=== PATIENT | female | born 1935 | race Caucasian/White ===

== ENCOUNTER 2016-09-10 15:52 | Emergency (ER) | payer SELFPAY ==
[~2016-09-10] VITALS: Ht 157.5 cm; Wt 65.9 kg
[2016-09-10 16:21] VITALS: BP 177/77
[2016-09-10] MEDS ORDERED: LISI-662 PO (16:31)
[2016-09-10] MEDS ORDERED: HYDR25TA PO (16:31)
== END 2016-09-10 18:50 | disposition left against medical advice (07) ==
LOC: EMS 15:55
DX: M25.552 Pain in left hip (principal); I10 Essential (primary) hypertension; Z87.891 Personal history of nicotine dependence; Z53.21 Procedure and treatment not carried out due to patient leaving prior to being seen by health care provider

== ENCOUNTER 2017-06-17 12:44 | Emergency (ER) | payer SELFPAY ==
[~2017-06-17] VITALS: Ht 149.9 cm; Wt 50.0 kg
[~2017-06-17 12:44] MED LIST: HYDR25TA PO; LISI-662 PO
[2017-06-17] MEDS ORDERED: ASPI81 PO (13:23)
[2017-06-17] MEDS ORDERED: IOVERSOL 350 MG/ML 100 ML VIAL ONE (15:46)
[2017-06-17 16:12] LABS: BASOPHILS # (AUTO) 0.02 K/uL (0.00-0.20); BASOPHILS % (AUTO) 0.1 % (0.0-2.0); EOSINOPHILS # (AUTO) 0.14 K/uL (0.00-0.70); EOSINOPHILS % (AUTO) 1.25 % (1.0-6.0); HEMATOCRIT 45.5 % (36-46); LYMPHOCYTES # (AUTO) 1.6 K/uL (1.0-4.8); MEAN CORPUSCULAR HEMOGLOBIN 30.7 pg (26.0-34.0); MEAN CORPUSCULAR HGB CONC 33.1 G/dL (31.0-37.0); MEAN CORPUSCULAR VOLUME 93 fL (80-100); MONOCYTES # (AUTO) 0.4 K/uL (0.1-1.0); MONOCYTES % (AUTO) 3.8 % (2.0-9.0); NEUTROPHILS # (AUTO) 9.3 K/uL (1.8-7.7); NEUTROPHILS % (AUTO) 80.9 % (40.0-70.0); PLATELET COUNT (AUTO) 304 K/uL (150-450); RED CELL DISTRIBUTION WIDTH 13.7 % (11.5-14.5)
[2017-06-17 16:29] LABS: ANION GAP 9 mmol/L (8-16); CALCIUM, TOTAL 9.4 mg/dL (8.8-10.5); CARBON DIOXIDE 27 mmol/L (22-29); CHLORIDE 100 mmol/L (98-107); CREATININE 0.83 mg/dL (0.60-1.30); GLOMERULAR FILTR. RATE CALC > 60 mL/min (>60); GLUCOSE,RANDOM 98 mg/dL (70-110); POTASSIUM 3.9 mmol/L (3.5-5.1); SODIUM SERUM 136 mmol/L (136-145); UREA NITROGEN, BLOOD 15 mg/dL (7-18)
[2017-06-17 16:47] LABS: ALANINE AMINOTRANSFERASE 37 U/L (12-78); ALBUMIN 4.1 g/dL (3.4-5.0); ALKALINE PHOSPHATASE 146 U/L (46-116); ASPARTATE AMINOTRANSFERASE 38 U/L (15-37); BILIRUBIN,TOTAL 0.6 mg/dL (0.1-1.0)
[2017-06-17 18:30] VITALS: BP 152/92
== END 2017-06-17 19:24 | disposition home or self-care (01) ==
LOC: EMS 12:46
DX: S22.43XA Multiple fractures of ribs, bilateral, initial encounter for closed fracture (principal); S00.03XA Contusion of scalp, initial encounter; R91.1 Solitary pulmonary nodule; K44.9 Diaphragmatic hernia without obstruction or gangrene; K57.30 Diverticulosis of large intestine without perforation or abscess without bleeding; I10 Essential (primary) hypertension; I25.10 Atherosclerotic heart disease of native coronary artery without angina pectoris; I70.0 Atherosclerosis of aorta; K40.90 Unilateral inguinal hernia, without obstruction or gangrene, not specified as recurrent; Z79.82 Long term (current) use of aspirin; Z86.73 Personal history of transient ischemic attack (TIA), and cerebral infarction without residual deficits; Z90.49 Acquired absence of other specified parts of digestive tract; W18.30XA Fall on same level, unspecified, initial encounter; Y92.89 Other specified places as the place of occurrence of the external cause; Y93.89 Activity, other specified; Y99.8 Other external cause status
CPT/HCPCS: 36415; 70450; 71260; 72125; 72193; 74160; 80053; 85025; 99285; Q9967

== ENCOUNTER 2018-10-20 19:06 | Emergency (ER) | payer MEDICAID ==
[~2018-10-20] VITALS: Ht 147.3 cm; Wt 50.0 kg
[~2018-10-20 19:06] MED LIST changes: +ASPI81 PO
[2018-10-20] MEDS ORDERED: TraMADol HCL 50 MG TABLET PO ONE (20:15)
[2018-10-20 23:55] VITALS: BP 113/50
== END 2018-10-21 00:12 | disposition home or self-care (01) ==
LOC: EMS 19:06
DX: S80.12XA Contusion of left lower leg, initial encounter (principal); S40.012A Contusion of left shoulder, initial encounter; S80.02XA Contusion of left knee, initial encounter; S30.0XXA Contusion of lower back and pelvis, initial encounter; I10 Essential (primary) hypertension; Z86.73 Personal history of transient ischemic attack (TIA), and cerebral infarction without residual deficits; Z90.710 Acquired absence of both cervix and uterus; Z90.721 Acquired absence of ovaries, unilateral; Z79.899 Other long term (current) drug therapy; Z79.82 Long term (current) use of aspirin; W19.XXXA Unspecified fall, initial encounter; Y93.89 Activity, other specified; Y92.89 Other specified places as the place of occurrence of the external cause; Y99.8 Other external cause status
CPT/HCPCS: 72170; 73552

== ENCOUNTER 2019-03-01 14:42 | Inpatient (IN) | payer MEDICAID ==
[~2019-03-01] VITALS: Ht 152.4 cm; Wt 52.0 kg
[~2019-03-01 14:42] MED LIST changes: -HYDR25TA PO
[2019-03-01] MEDS ORDERED: SODIUM CHLORIDE 0.9% 1,000 ML IV ONE ×3 (15:30→18:30)
[2019-03-01 15:48] LABS: EOSINOPHILS % (AUTO) 0.1 % (1.0-6.0); HEMATOCRIT 31.8 % (36-46); HEMOGLOBIN 10.5 g/dL (12.0-16.0); LYMPHOCYTES # (AUTO) 1.4 K/uL (1.0-4.8); LYMPHOCYTES % (AUTO) 8.8 % (22.0-44.0); MEAN CORPUSCULAR HEMOGLOBIN 31.8 pg (26.0-34.0); MEAN CORPUSCULAR HGB CONC 32.9 G/dL (31.0-37.0); MEAN CORPUSCULAR VOLUME 97 fL (80-100); MONOCYTES # (AUTO) 1.6 K/uL (0.1-1.0); MONOCYTES % (AUTO) 10.2 % (2.0-9.0); NEUTROPHILS # (AUTO) 12.8 K/uL (1.8-7.7); NEUTROPHILS % (AUTO) 80.9 % (40.0-70.0); PLATELET COUNT (AUTO) 351 K/uL (150-450); RED BLOOD CELL COUNT(AUTO) 3.29 MIL/uL (4.00-5.20); RED CELL DISTRIBUTION WIDTH 13.8 % (11.5-14.5)
[2019-03-01 16:02] LABS: CALCIUM, TOTAL 8.9 mg/dL (8.8-10.5); CREATININE 2.4 mg/dL (0.60-1.30); POTASSIUM 5.2 mmol/L (3.5-5.1)
[2019-03-01 16:27] LABS: ALBUMIN 3.2 g/dL (3.4-5.0); BILIRUBIN,TOTAL 0.8 mg/dL (0.1-1.0); TOTAL PROTEIN, SERUM 7.2 g/dL (6.4-8.2)
[2019-03-01] MEDS ORDERED: ONDANSETRON HCL 4 MG/2 ML VIAL IVP ONE (17:15)
[2019-03-01 17:37] LABS: APPEARANCE,URINE CLOUDY (CLEAR); GLUCOSE, URINE (UA) NEGATIVE (NEGATIVE); KETONES,URINE NEGATIVE (NEGATIVE); LEUKOCYTE ESTERASE ,URINE SMALL (NEGATIVE); NITRATE,URINE NEGATIVE (NEGATIVE); OCCULT BLOOD,URINE SMALL (NEGATIVE); PROTEIN,URINE POS 1+ (NEGATIVE)
[2019-03-01 17:41] LABS: BILIRUBIN,URINE PRELIM. POSITIVE (NEGATIVE)
[2019-03-01 17:47] LABS: BACTERIA,URINE Moderate /HPF (None Seen); SQUAMOUS EPITHELIAL CELL,UR Many /LPF (None Seen)
[2019-03-01] MEDS ORDERED: CefTRIAXone 1 GM/DEXTROSE 50 ML IV ONE (18:00)
[2019-03-01] MEDS ORDERED: ONDANSETRON HCL 4 MG/2 ML VIAL IVP PRN ×2 (18:30→21:00)
[2019-03-01] MEDS ORDERED: ACETAMINOPHEN 325 MG TABLET PO PRN (18:30)
[2019-03-01] MEDS ORDERED: 0.9% SODIUM CHLORIDE 10 ML SYRINGE IVP PRN (21:00)
[2019-03-01 22:10] LABS: PROTHROMBIN TIME 10.5 SEC (9.4-11.6)
[2019-03-01 22:36] VITALS: BP 139/53
[2019-03-02] MEDS ORDERED: INFLUENZA VIRUS VACCINE QVS 2019-20 (3YR+)/PF 60 MCG/0.5 ML SYRINGE IM ONE (04:45)
[2019-03-02] MEDS ORDERED: PNEUMOCOCCAL VACCINE POLYVALENT 0.5 ML VIAL [PPSV23] IM ONE (04:45)
[2019-03-02 05:03] VITALS: BP 104/50
[2019-03-02 06:46] LABS: BASOPHILS % (AUTO) 0.1 % (0.0-2.0); EOSINOPHILS % (AUTO) 0 % (1.0-6.0); HEMATOCRIT 25.7 % (36-46); HEMOGLOBIN 8.7 g/dL (12.0-16.0); LYMPHOCYTES # (AUTO) 1.8 K/uL (1.0-4.8); LYMPHOCYTES % (AUTO) 16.6 % (22.0-44.0); MEAN CORPUSCULAR HEMOGLOBIN 32.3 pg (26.0-34.0); MEAN CORPUSCULAR HGB CONC 33.9 G/dL (31.0-37.0); MEAN CORPUSCULAR VOLUME 95 fL (80-100); MONOCYTES # (AUTO) 1.2 K/uL (0.1-1.0); MONOCYTES % (AUTO) 11.1 % (2.0-9.0); NEUTROPHILS # (AUTO) 7.9 K/uL (1.8-7.7); NEUTROPHILS % (AUTO) 72.2 % (40.0-70.0); PLATELET COUNT (AUTO) 260 K/uL (150-450); RED CELL DISTRIBUTION WIDTH 13.8 % (11.5-14.5)
[2019-03-02 06:57] LABS: CALCIUM, TOTAL 7.6 mg/dL (8.8-10.5); CREATININE 1.74 mg/dL (0.60-1.30); MAGNESIUM 2.4 mg/dL (1.80-2.40); POTASSIUM 4.7 mmol/L (3.5-5.1)
[2019-03-02 08:06] VITALS: BP 126/53
[2019-03-02] MEDS: OXYGEN THERAPY IH SCH ×2 (08:55→20:00)
[2019-03-02] MEDS: PANTOPRAZOLE SODIUM 40 MG DR TABLET PO SCH (08:55)
[2019-03-02] MEDS: LISINOPRIL 20 MG TABLET PO SCH (08:55)
[2019-03-02] MEDS: ASPIRIN 81 MG CHEWABLE TABLET PO SCH (08:55)
[2019-03-02 11:15] VITALS: BP 131/56
[2019-03-02] MEDS: SODIUM CHLORIDE 0.9% 1,000 ML IV SCH (14:55)
[2019-03-02] MEDS: ACETAMINOPHEN 325 MG TABLET PO PRN (14:55)
[2019-03-02] MEDS: CefTRIAXone 1 GM/DEXTROSE 50 ML IV SCH (18:30)
[2019-03-02 20:20] VITALS: BP 120/57
[2019-03-02] MEDS: ATORVASTATIN CALCIUM 40 MG TABLET PO SCH (21:11)
[2019-03-02 23:51] VITALS: BP 137/52
[2019-03-03 05:44] VITALS: BP 128/67
[2019-03-03 06:49] LABS: BASOPHILS % (AUTO) 0.2 % (0.0-2.0); EOSINOPHILS % (AUTO) 0.6 % (1.0-6.0); LYMPHOCYTES # (AUTO) 1.8 K/uL (1.0-4.8); LYMPHOCYTES % (AUTO) 20.2 % (22.0-44.0); MEAN CORPUSCULAR HEMOGLOBIN 32.5 pg (26.0-34.0); MEAN CORPUSCULAR HGB CONC 33.9 G/dL (31.0-37.0); MEAN CORPUSCULAR VOLUME 96 fL (80-100); MONOCYTES # (AUTO) 0.8 K/uL (0.1-1.0); MONOCYTES % (AUTO) 8.6 % (2.0-9.0); NEUTROPHILS # (AUTO) 6.1 K/uL (1.8-7.7); NEUTROPHILS % (AUTO) 70.4 % (40.0-70.0); PLATELET COUNT (AUTO) 218 K/uL (150-450); RED BLOOD CELL COUNT(AUTO) 2.17 MIL/uL (4.00-5.20); RED CELL DISTRIBUTION WIDTH 13.6 % (11.5-14.5)
[2019-03-03 07:09] LABS: CALCIUM, TOTAL 7.5 mg/dL (8.8-10.5); CHOL/HDL RATIO 2.4 (3.9-5.7); CREATININE 1.07 mg/dL (0.60-1.30); POTASSIUM 3.9 mmol/L (3.5-5.1)
[2019-03-03 07:14] LABS: HEMATOCRIT 20.7 % (36-46)
[2019-03-03 07:30] VITALS: BP 139/59
[2019-03-03] MEDS: LISINOPRIL 20 MG TABLET PO SCH (10:12)
[2019-03-03] MEDS: ASPIRIN 81 MG CHEWABLE TABLET PO SCH (10:12)
[2019-03-03] MEDS: PANTOPRAZOLE SODIUM 40 MG DR TABLET PO SCH (10:12)
[2019-03-03] MEDS: SODIUM CHLORIDE 0.9% 1,000 ML IV SCH (10:13)
[2019-03-03] MEDS: OXYGEN THERAPY IH SCH ×2 (10:13→20:16)
[2019-03-03 11:10] VITALS: BP 160/72
[2019-03-03 15:50] VITALS: BP 136/64
[2019-03-03] MEDS ORDERED: IOVERSOL 350 MG/ML 100 ML VIAL ONE (16:58)
[2019-03-03] MEDS ORDERED: SODIUM CHLORIDE 0.9% 100 ML ONE (16:58)
[2019-03-03] MEDS: CefTRIAXone 1 GM/DEXTROSE 50 ML IV SCH (18:26)
[2019-03-03 19:27] VITALS: BP 144/60
[2019-03-03] MEDS: ATORVASTATIN CALCIUM 40 MG TABLET PO SCH (21:08)
[2019-03-03 23:45] VITALS: BP 151/65
[2019-03-04 04:53] VITALS: BP 155/58
[2019-03-04 06:27] LABS: BASOPHILS % (AUTO) 0.4 % (0.0-2.0); EOSINOPHILS % (AUTO) 2.4 % (1.0-6.0); HEMOGLOBIN 7.1 g/dL (12.0-16.0); LYMPHOCYTES % (AUTO) 24.3 % (22.0-44.0); MEAN CORPUSCULAR HEMOGLOBIN 33.9 pg (26.0-34.0); MEAN CORPUSCULAR HGB CONC 35.2 G/dL (31.0-37.0); MEAN CORPUSCULAR VOLUME 96 fL (80-100); MONOCYTES # (AUTO) 0.6 K/uL (0.1-1.0); NEUTROPHILS # (AUTO) 5.4 K/uL (1.8-7.7); NEUTROPHILS % (AUTO) 65.9 % (40.0-70.0); PLATELET COUNT (AUTO) 228 K/uL (150-450); RED BLOOD CELL COUNT(AUTO) 2.09 MIL/uL (4.00-5.20); RED CELL DISTRIBUTION WIDTH 13.5 % (11.5-14.5)
[2019-03-04 06:37] LABS: ANION GAP 6 mmol/L (8-16); CALCIUM, TOTAL 7.8 mg/dL (8.8-10.5); CARBON DIOXIDE 24 mmol/L (22-29); CHLORIDE 110 mmol/L (98-107); CREATININE 0.85 mg/dL (0.60-1.30); GLUCOSE,RANDOM 99 mg/dL (70-110); POTASSIUM 4.1 mmol/L (3.5-5.1); SODIUM SERUM 140 mmol/L (136-145); UREA NITROGEN, BLOOD 25 mg/dL (7-18)
[2019-03-04 06:47] LABS: HEMATOCRIT 20.2 % (36-46)
[2019-03-04 06:50] LABS: GLOMERULAR FILTR. RATE CALC > 60 mL/min (>60)
[2019-03-04 07:50] VITALS: BP 176/75
[2019-03-04] MEDS: OXYGEN THERAPY IH SCH ×2 (08:00→20:54)
[2019-03-04] MEDS: LISINOPRIL 20 MG TABLET PO SCH ×2 (08:24→20:57)
[2019-03-04] MEDS: SODIUM CHLORIDE 0.9% 1,000 ML IV SCH ×2 (08:25→13:00)
[2019-03-04] MEDS: ASPIRIN 325 MG TABLET PO SCH (08:25)
[2019-03-04] MEDS: PANTOPRAZOLE SODIUM 40 MG DR TABLET PO SCH (08:25)
[2019-03-04 11:14] VITALS: BP 184/67
[2019-03-04] MEDS ORDERED: METOPROLOL TARTRATE 5 MG/5 ML VIAL IVP PRN (11:15)
[2019-03-04] MEDS ORDERED: METOPROLOL TARTRATE 5 MG/5 ML VIAL IVP ONE ×2 (11:15→15:25)
[2019-03-04] MEDS ORDERED: METOPROLOL TARTRATE 25 MG TABLET PO ONE (12:00)
[2019-03-04 13:14] VITALS: BP 112/65
[2019-03-04] MEDS ORDERED: NITROGLYCERIN 400 MCG/SUBLINGUAL SPRAY 4.9 GM BOTTLE SL ONE ×2 (14:36→15:35)
[2019-03-04] MEDS ORDERED: METOPROLOL TARTRATE 5 MG/5 ML VIAL ONE (14:37)
[2019-03-04] MEDS ORDERED: IOVERSOL 350 MG/ML 150 ML VIAL ONE (14:43)
[2019-03-04] MEDS ORDERED: SODIUM CHLORIDE 0.9% 100 ML ONE (14:43)
[2019-03-04] MEDS: TraMADol HCL 50 MG TABLET PO PRN (15:06)
[2019-03-04 16:46] VITALS: BP 183/61
[2019-03-04] MEDS: CefTRIAXone 1 GM/DEXTROSE 50 ML IV SCH (17:53)
[2019-03-04 20:47] VITALS: BP 146/59
[2019-03-04] MEDS: ATORVASTATIN CALCIUM 40 MG TABLET PO SCH (20:57)
[2019-03-05 00:34] VITALS: BP 150/66
[2019-03-05 04:50] VITALS: BP 131/96
[2019-03-05] MEDS: SODIUM CHLORIDE 0.9% 1,000 ML IV SCH ×2 (05:55→22:50)
[2019-03-05 07:31] LABS: BASOPHILS % (AUTO) 0.5 % (0.0-2.0); EOSINOPHILS % (AUTO) 4.2 % (1.0-6.0); HEMATOCRIT 21.2 % (36-46); HEMOGLOBIN 7.3 g/dL (12.0-16.0); LYMPHOCYTES # (AUTO) 2.2 K/uL (1.0-4.8); MEAN CORPUSCULAR HGB CONC 34.5 G/dL (31.0-37.0); MEAN CORPUSCULAR VOLUME 96 fL (80-100); MONOCYTES # (AUTO) 0.6 K/uL (0.1-1.0); MONOCYTES % (AUTO) 8.1 % (2.0-9.0); NEUTROPHILS # (AUTO) 4.2 K/uL (1.8-7.7); NEUTROPHILS % (AUTO) 57.2 % (40.0-70.0); PLATELET COUNT (AUTO) 251 K/uL (150-450); RED BLOOD CELL COUNT(AUTO) 2.21 MIL/uL (4.00-5.20); RED CELL DISTRIBUTION WIDTH 13.7 % (11.5-14.5)
[2019-03-05 07:40] LABS: ANION GAP 6 mmol/L (8-16); CALCIUM, TOTAL 7.9 mg/dL (8.8-10.5); CARBON DIOXIDE 27 mmol/L (22-29); CHLORIDE 110 mmol/L (98-107); CREATININE 0.82 mg/dL (0.60-1.30); GLUCOSE,RANDOM 102 mg/dL (70-110); POTASSIUM 4.3 mmol/L (3.5-5.1); SODIUM SERUM 143 mmol/L (136-145); UREA NITROGEN, BLOOD 19 mg/dL (7-18)
[2019-03-05 07:41] LABS: GLOMERULAR FILTR. RATE CALC > 60 mL/min (>60)
[2019-03-05] MEDS: OXYGEN THERAPY IH SCH ×2 (08:00→20:00)
[2019-03-05 08:24] VITALS: BP 177/72
[2019-03-05] MEDS: PANTOPRAZOLE SODIUM 40 MG DR TABLET PO SCH (08:47)
[2019-03-05] MEDS: ASPIRIN 325 MG TABLET PO SCH (08:47)
[2019-03-05] MEDS: LISINOPRIL 20 MG TABLET PO SCH ×2 (08:47→19:57)
[2019-03-05 11:40] VITALS: BP 182/73
[2019-03-05] MEDS: AmLODIPine BESYLATE 5 MG TABLET PO SCH (13:31)
[2019-03-05] MEDS: METOPROLOL SUCCINATE 25 MG ER TABLET PO SCH (13:31)
[2019-03-05 16:09] VITALS: BP 171/60
[2019-03-05] MEDS: CefTRIAXone 1 GM/DEXTROSE 50 ML IV SCH (17:56)
[2019-03-05] MEDS: ACETAMINOPHEN 325 MG TABLET PO PRN (19:57)
[2019-03-05] MEDS: ATORVASTATIN CALCIUM 40 MG TABLET PO SCH (19:58)
[2019-03-05 20:50] VITALS: BP 167/66
[2019-03-06] VITALS (7 sets, daily range): BP systolic 132–169; BP diastolic 54–88
[2019-03-06] MEDS: ACETAMINOPHEN 325 MG TABLET PO PRN ×2 (03:09→23:59)
[2019-03-06 07:47] LABS: BASOPHILS % (AUTO) 0.4 % (0.0-2.0); HEMATOCRIT 21.3 % (36-46); HEMOGLOBIN 7.2 g/dL (12.0-16.0); LYMPHOCYTES # (AUTO) 1.6 K/uL (1.0-4.8); LYMPHOCYTES % (AUTO) 22.8 % (22.0-44.0); MEAN CORPUSCULAR HEMOGLOBIN 32.3 pg (26.0-34.0); MEAN CORPUSCULAR HGB CONC 33.7 G/dL (31.0-37.0); MEAN CORPUSCULAR VOLUME 96 fL (80-100); MONOCYTES # (AUTO) 0.6 K/uL (0.1-1.0); MONOCYTES % (AUTO) 8.6 % (2.0-9.0); NEUTROPHILS # (AUTO) 4.4 K/uL (1.8-7.7); NEUTROPHILS % (AUTO) 62.2 % (40.0-70.0); PLATELET COUNT (AUTO) 280 K/uL (150-450); RED BLOOD CELL COUNT(AUTO) 2.22 MIL/uL (4.00-5.20); RED CELL DISTRIBUTION WIDTH 13.5 % (11.5-14.5)
[2019-03-06] MEDS: OXYGEN THERAPY IH SCH ×2 (08:00→20:00)
[2019-03-06 08:03] LABS: ANION GAP 8 mmol/L (8-16); CALCIUM, TOTAL 7.8 mg/dL (8.8-10.5); CARBON DIOXIDE 25 mmol/L (22-29); CHLORIDE 110 mmol/L (98-107); CREATININE 0.77 mg/dL (0.60-1.30); GLUCOSE,RANDOM 106 mg/dL (70-110); SODIUM SERUM 143 mmol/L (136-145); UREA NITROGEN, BLOOD 14 mg/dL (7-18)
[2019-03-06] MEDS: METOPROLOL SUCCINATE 25 MG ER TABLET PO SCH (08:04)
[2019-03-06] MEDS: LISINOPRIL 20 MG TABLET PO SCH ×2 (08:04→20:03)
[2019-03-06] MEDS: AmLODIPine BESYLATE 5 MG TABLET PO SCH (08:04)
[2019-03-06] MEDS: PANTOPRAZOLE SODIUM 40 MG DR TABLET PO SCH (08:04)
[2019-03-06] MEDS: ASPIRIN 325 MG TABLET PO SCH (08:05)
[2019-03-06 08:07] LABS: GLOMERULAR FILTR. RATE CALC > 60 mL/min (>60)
[2019-03-06] MEDS: TraMADol HCL 50 MG TABLET PO PRN (09:57)
[2019-03-06] MEDS: SODIUM CHLORIDE 0.9% 1,000 ML IV SCH ×2 (15:52→22:10)
[2019-03-06] MEDS: CefTRIAXone 1 GM/DEXTROSE 50 ML IV SCH (18:20)
[2019-03-06] MEDS: ATORVASTATIN CALCIUM 40 MG TABLET PO SCH (20:03)
[2019-03-06] MEDS ORDERED: SODIUM CHLORIDE 0.9% 100 ML ONE (23:24)
[2019-03-07] VITALS (21 sets, daily range): BP systolic 94–192; BP diastolic 42–95
[2019-03-07] MEDS: ACETAMINOPHEN 325 MG TABLET PO PRN (04:34)
[2019-03-07 07:42] LABS: ANION GAP 6 mmol/L (8-16); CALCIUM, TOTAL 8.3 mg/dL (8.8-10.5); CARBON DIOXIDE 27 mmol/L (22-29); CHLORIDE 106 mmol/L (98-107); CREATININE 0.77 mg/dL (0.60-1.30); GLOMERULAR FILTR. RATE CALC > 60 mL/min (>60); GLUCOSE,RANDOM 96 mg/dL (70-110); PROTHROMBIN TIME 10.3 SEC (9.4-11.6); SODIUM SERUM 139 mmol/L (136-145); UREA NITROGEN, BLOOD 15 mg/dL (7-18)
[2019-03-07] MEDS: LISINOPRIL 20 MG TABLET PO SCH ×2 (08:50→20:27)
[2019-03-07] MEDS: PANTOPRAZOLE SODIUM 40 MG DR TABLET PO SCH (08:50)
[2019-03-07] MEDS: AmLODIPine BESYLATE 5 MG TABLET PO SCH (08:51)
[2019-03-07] MEDS: ASPIRIN 325 MG TABLET PO SCH (08:51)
[2019-03-07] MEDS: METOPROLOL SUCCINATE 25 MG ER TABLET PO SCH (08:51)
[2019-03-07] MEDS: OXYGEN THERAPY IH SCH ×2 (08:58→20:43)
[2019-03-07 09:04] LABS: BASOPHILS % (AUTO) 0.4 % (0.0-2.0); EOSINOPHILS % (AUTO) 5.8 % (1.0-6.0); HEMATOCRIT 35.9 % (36-46); HEMOGLOBIN 12.2 g/dL (12.0-16.0); LYMPHOCYTES # (AUTO) 1.7 K/uL (1.0-4.8); LYMPHOCYTES % (AUTO) 17.2 % (22.0-44.0); MEAN CORPUSCULAR HEMOGLOBIN 31.5 pg (26.0-34.0); MEAN CORPUSCULAR HGB CONC 34.1 G/dL (31.0-37.0); MEAN CORPUSCULAR VOLUME 92 fL (80-100); MONOCYTES # (AUTO) 0.7 K/uL (0.1-1.0); MONOCYTES % (AUTO) 6.7 % (2.0-9.0); NEUTROPHILS # (AUTO) 6.8 K/uL (1.8-7.7); NEUTROPHILS % (AUTO) 69.9 % (40.0-70.0); PLATELET COUNT (AUTO) 266 K/uL (150-450); RED BLOOD CELL COUNT(AUTO) 3.89 MIL/uL (4.00-5.20)
[2019-03-07] MEDS: TraMADol HCL 50 MG TABLET PO PRN (09:11)
[2019-03-07] MEDS: SODIUM CHLORIDE 0.9% 1,000 ML IV SCH ×3 (11:09→20:48)
[2019-03-07] MEDS ORDERED: LIDOCAINE/PF 2% 5 ML VIAL INJ ONE (12:00)
[2019-03-07] MEDS ORDERED: PHENYLEPHRINE HCL 10 MG/ML VIAL IVP ONE (12:00)
[2019-03-07] MEDS ORDERED: ONDANSETRON HCL 4 MG/2 ML VIAL IVP ONE (12:00)
[2019-03-07] MEDS ORDERED: LIDOCAINE 1%/EPI 1:200,000/PF 30 ML VIAL ONE (12:00)
[2019-03-07] MEDS ORDERED: DEXAMETHASONE SOD PHOS 4 MG/ML VIAL IVP ONE (12:00)
[2019-03-07] MEDS ORDERED: PROPOFOL 1% 20 ML VIAL IVP ONE (12:00)
[2019-03-07] MEDS ORDERED: 0.9% SODIUM CHLORIDE 10 ML VIAL IVP ONE (12:00)
[2019-03-07] MEDS ORDERED: SUCCINYLCHOLINE CHLORIDE 20 MG/ML 10 ML VIAL IVP ONE (12:00)
[2019-03-07] MEDS ORDERED: ROCURONIUM BROMIDE 10 MG/ML 5 ML VIAL IVP ONE (12:00)
[2019-03-07] MEDS ORDERED: FentaNYL CITRATE-PF 100 MCG/2 ML VIAL IVP ONE (12:00)
[2019-03-07] MEDS ORDERED: BUPIVACAINE HCL/PF 0.5% 30 ML VIAL ONE (12:01)
[2019-03-07] MEDS ORDERED: SODIUM CHLORIDE 0.9% 500 ML IV ONE (12:01)
[2019-03-07] MEDS ORDERED: BACITRACIN 28.4 GM OINTMENT TP ONE (12:02)
[2019-03-07] MEDS ORDERED: SODIUM CHLORIDE 0.9% 1,000 ML IV ONE (12:03)
[2019-03-07] MEDS ORDERED: BUPIVACAINE LIPOSOME/PF 1.3%-13.3MG/ML SUSPENSION 20 ML VIAL INJ ONE (12:30)
[2019-03-07] MEDS ORDERED: LIDOCAINE/PF 1% 30 ML VIAL ONE (12:45)
[2019-03-07] MEDS ORDERED: PHENYLEPHRINE 200 MG/D5%-WATER 250 ML IV PRN (13:11)
[2019-03-07] MEDS ORDERED: ACETAMINOPHEN 1000 MG/ISO-OSM 100 ML IV ONE ×2 (13:27→13:30)
[2019-03-07] MEDS ORDERED: SUGAMMADEX SODIUM 200 MG/2 ML VIAL IVP ONE (14:04)
[2019-03-07] MEDS ORDERED: ENOXAPARIN SODIUM 30 MG/0.3 ML PF SYRINGE SQ ONE (15:30)
[2019-03-07 17:31] LABS: HEMATOCRIT 33.9 % (36-46); HEMOGLOBIN 11.3 g/dL (12.0-16.0); MEAN CORPUSCULAR HEMOGLOBIN 30.9 pg (26.0-34.0); MEAN CORPUSCULAR HGB CONC 33.4 G/dL (31.0-37.0); MEAN CORPUSCULAR VOLUME 93 fL (80-100); PLATELET COUNT (AUTO) 278 K/uL (150-450); RED BLOOD CELL COUNT(AUTO) 3.66 MIL/uL (4.00-5.20); RED CELL DISTRIBUTION WIDTH 14.6 % (11.5-14.5)
[2019-03-07 18:22] LABS: BAND NEUTROPHILS % (MANUAL) 13 % (0-5); LYMPHOCYTES % (MANUAL) 5 % (22-44); MONOCYTES % (MANUAL) 2 % (2-9); SEGMENTED NEUTROPHILS % 80 % (40-70)
[2019-03-07] MEDS: CefTRIAXone 1 GM/DEXTROSE 50 ML IV SCH (18:28)
[2019-03-07] MEDS: ATORVASTATIN CALCIUM 40 MG TABLET PO SCH (20:27)
[2019-03-07] MEDS: CeFAZolin 1 GM/DEXTROSE 50 ML IV SCH (22:04)
[2019-03-08] VITALS (9 sets, daily range): BP systolic 107–168; BP diastolic 40–72
[2019-03-08] MEDS: TraMADol HCL 50 MG TABLET PO PRN ×2 (00:48→12:23)
[2019-03-08 04:50] LABS: HEMATOCRIT 30.4 % (36-46); HEMOGLOBIN 10.5 g/dL (12.0-16.0); MEAN CORPUSCULAR HEMOGLOBIN 31.9 pg (26.0-34.0); MEAN CORPUSCULAR HGB CONC 34.5 G/dL (31.0-37.0); MEAN CORPUSCULAR VOLUME 92 fL (80-100); PLATELET COUNT (AUTO) 299 K/uL (150-450); RED CELL DISTRIBUTION WIDTH 14.9 % (11.5-14.5)
[2019-03-08 04:59] LABS: ANION GAP 8 mmol/L (8-16); CALCIUM, TOTAL 7.7 mg/dL (8.8-10.5); CARBON DIOXIDE 24 mmol/L (22-29); CHLORIDE 104 mmol/L (98-107); CREATININE 0.75 mg/dL (0.60-1.30); GLUCOSE,RANDOM 153 mg/dL (70-110); POTASSIUM 4.3 mmol/L (3.5-5.1); SODIUM SERUM 136 mmol/L (136-145); UREA NITROGEN, BLOOD 16 mg/dL (7-18)
[2019-03-08 05:01] LABS: GLOMERULAR FILTR. RATE CALC > 60 mL/min (>60)
[2019-03-08 05:17] LABS: BAND NEUTROPHILS % (MANUAL) 5 % (0-5); LYMPHOCYTES % (MANUAL) 5 % (22-44); MONOCYTES % (MANUAL) 3 % (2-9); SEGMENTED NEUTROPHILS % 87 % (40-70)
[2019-03-08] MEDS: CeFAZolin 1 GM/DEXTROSE 50 ML IV SCH ×2 (06:03→13:55)
[2019-03-08] MEDS: OXYGEN THERAPY IH SCH (08:40)
[2019-03-08] MEDS: AmLODIPine BESYLATE 5 MG TABLET PO SCH (08:40)
[2019-03-08] MEDS: ASPIRIN 325 MG TABLET PO SCH (08:40)
[2019-03-08] MEDS: PANTOPRAZOLE SODIUM 40 MG DR TABLET PO SCH (08:40)
[2019-03-08] MEDS: LISINOPRIL 20 MG TABLET PO SCH ×2 (08:41→20:35)
[2019-03-08] MEDS: METOPROLOL SUCCINATE 25 MG ER TABLET PO SCH (08:41)
[2019-03-08] MEDS ORDERED: SODIUM CHLORIDE 0.9% 250 ML IV ONE (13:03)
[2019-03-08] MEDS: ACETAMINOPHEN 325 MG TABLET PO PRN (16:59)
[2019-03-08] MEDS: CefTRIAXone 1 GM/DEXTROSE 50 ML IV SCH (17:58)
[2019-03-08] MEDS: ENOXAPARIN SODIUM 30 MG/0.3 ML PF SYRINGE SQ SCH (18:33)
[2019-03-08] MEDS: ATORVASTATIN CALCIUM 40 MG TABLET PO SCH (20:35)
[2019-03-09 00:50] VITALS: BP 124/74
[2019-03-09 04:49] VITALS: BP 131/55
[2019-03-09 05:14] LABS: BASOPHILS % (AUTO) 0.4 % (0.0-2.0); EOSINOPHILS % (AUTO) 3.7 % (1.0-6.0); HEMATOCRIT 26.2 % (36-46); HEMOGLOBIN 8.9 g/dL (12.0-16.0); LYMPHOCYTES # (AUTO) 2.1 K/uL (1.0-4.8); LYMPHOCYTES % (AUTO) 22.9 % (22.0-44.0); MEAN CORPUSCULAR HEMOGLOBIN 32.1 pg (26.0-34.0); MEAN CORPUSCULAR HGB CONC 34.1 G/dL (31.0-37.0); MEAN CORPUSCULAR VOLUME 94 fL (80-100); MONOCYTES # (AUTO) 0.8 K/uL (0.1-1.0); MONOCYTES % (AUTO) 9.2 % (2.0-9.0); NEUTROPHILS # (AUTO) 5.8 K/uL (1.8-7.7); NEUTROPHILS % (AUTO) 63.8 % (40.0-70.0); PLATELET COUNT (AUTO) 305 K/uL (150-450); RED BLOOD CELL COUNT(AUTO) 2.78 MIL/uL (4.00-5.20); RED CELL DISTRIBUTION WIDTH 14.9 % (11.5-14.5)
[2019-03-09 05:42] LABS: BILIRUBIN,TOTAL 0.6 mg/dL (0.1-1.0); CALCIUM, TOTAL 7.6 mg/dL (8.8-10.5); CREATININE 0.9 mg/dL (0.60-1.30); POTASSIUM 4.1 mmol/L (3.5-5.1); TOTAL PROTEIN, SERUM 5.2 g/dL (6.4-8.2)
[2019-03-09 08:15] VITALS: BP 144/60
[2019-03-09] MEDS: ENOXAPARIN SODIUM 30 MG/0.3 ML PF SYRINGE SQ SCH ×2 (08:27→20:31)
[2019-03-09] MEDS: METOPROLOL SUCCINATE 25 MG ER TABLET PO SCH (08:27)
[2019-03-09] MEDS: PANTOPRAZOLE SODIUM 40 MG DR TABLET PO SCH (08:27)
[2019-03-09] MEDS: AmLODIPine BESYLATE 5 MG TABLET PO SCH (08:28)
[2019-03-09] MEDS: TraMADol HCL 50 MG TABLET PO PRN (08:34)
[2019-03-09] MEDS: LISINOPRIL 20 MG TABLET PO SCH ×2 (09:00→20:30)
[2019-03-09] MEDS: ASPIRIN 325 MG TABLET PO SCH (09:00)
[2019-03-09 11:05] VITALS: BP 136/52
[2019-03-09 16:05] VITALS: BP 150/56
[2019-03-09] MEDS ORDERED: SODIUM CHLORIDE 0.9% 250 ML IV ONE (17:08)
[2019-03-09] MEDS: CefTRIAXone 1 GM/DEXTROSE 50 ML IV SCH (17:24)
[2019-03-09 20:05] VITALS: BP 148/63
[2019-03-09] MEDS: ATORVASTATIN CALCIUM 40 MG TABLET PO SCH (20:30)
[2019-03-09] MEDS: ACETAMINOPHEN 325 MG TABLET PO PRN (20:30)
[2019-03-10 00:31] VITALS: BP 123/46
[2019-03-10] MEDS: TraMADol HCL 50 MG TABLET PO PRN ×4 (00:48→22:31)
[2019-03-10 06:24] VITALS: BP 151/66
[2019-03-10 06:33] LABS: APPEARANCE,URINE CLEAR (CLEAR); BILIRUBIN,URINE NEGATIVE (NEGATIVE); GLUCOSE, URINE (UA) NEGATIVE (NEGATIVE); KETONES,URINE NEGATIVE (NEGATIVE); LEUKOCYTE ESTERASE ,URINE NEGATIVE (NEGATIVE); NITRATE,URINE NEGATIVE (NEGATIVE); OCCULT BLOOD,URINE NEGATIVE (NEGATIVE); PROTEIN,URINE NEGATIVE (NEGATIVE)
[2019-03-10 06:42] LABS: BACTERIA,URINE None Seen /HPF (None Seen); SQUAMOUS EPITHELIAL CELL,UR Rare /LPF (None Seen)
[2019-03-10 07:27] VITALS: BP 149/71
[2019-03-10] MEDS: ENOXAPARIN SODIUM 30 MG/0.3 ML PF SYRINGE SQ SCH ×2 (08:57→20:36)
[2019-03-10] MEDS: PANTOPRAZOLE SODIUM 40 MG DR TABLET PO SCH (08:58)
[2019-03-10] MEDS: METOPROLOL SUCCINATE 25 MG ER TABLET PO SCH (08:58)
[2019-03-10] MEDS: ASPIRIN 325 MG TABLET PO SCH (08:58)
[2019-03-10] MEDS: AmLODIPine BESYLATE 5 MG TABLET PO SCH (08:58)
[2019-03-10] MEDS: LISINOPRIL 20 MG TABLET PO SCH ×2 (08:58→20:35)
[2019-03-10] MEDS: DOCUSATE SODIUM 100 MG CAPSULE PO SCH ×2 (12:24→20:35)
[2019-03-10 14:55] VITALS: BP 136/53
[2019-03-10] MEDS: CefTRIAXone 1 GM/DEXTROSE 50 ML IV SCH (18:30)
[2019-03-10 19:15] VITALS: BP 133/56
[2019-03-10] MEDS: ACETAMINOPHEN 325 MG TABLET PO PRN (20:37)
[2019-03-10] MEDS: ATORVASTATIN CALCIUM 40 MG TABLET PO SCH (20:37)
[2019-03-10 23:58] VITALS: BP 147/62
[2019-03-11] VITALS (7 sets, daily range): BP systolic 125–150; BP diastolic 47–78
[2019-03-11] MEDS: METOPROLOL SUCCINATE 25 MG ER TABLET PO SCH (09:48)
[2019-03-11] MEDS: DOCUSATE SODIUM 100 MG CAPSULE PO SCH ×2 (09:49→20:11)
[2019-03-11] MEDS: ASPIRIN 325 MG TABLET PO SCH (09:49)
[2019-03-11] MEDS: LISINOPRIL 20 MG TABLET PO SCH ×2 (09:49→20:11)
[2019-03-11] MEDS: PANTOPRAZOLE SODIUM 40 MG DR TABLET PO SCH (09:49)
[2019-03-11] MEDS: ENOXAPARIN SODIUM 30 MG/0.3 ML PF SYRINGE SQ SCH ×2 (09:50→20:12)
[2019-03-11] MEDS: TraMADol HCL 50 MG TABLET PO PRN (09:50)
[2019-03-11] MEDS: AmLODIPine BESYLATE 5 MG TABLET PO SCH (11:53)
[2019-03-11] MEDS: CefTRIAXone 1 GM/DEXTROSE 50 ML IV SCH (17:11)
[2019-03-11] MEDS: ATORVASTATIN CALCIUM 40 MG TABLET PO SCH (20:11)
[2019-03-11] MEDS: ACETAMINOPHEN 325 MG TABLET PO PRN (20:11)
[2019-03-12] MEDS: TraMADol HCL 50 MG TABLET PO PRN ×2 (01:31→15:22)
[2019-03-12 05:29] VITALS: BP 136/57
[2019-03-12 08:18] VITALS: BP 149/54
[2019-03-12] MEDS: ASPIRIN 325 MG TABLET PO SCH (08:18)
[2019-03-12] MEDS: ENOXAPARIN SODIUM 30 MG/0.3 ML PF SYRINGE SQ SCH ×2 (08:18→20:19)
[2019-03-12] MEDS: DOCUSATE SODIUM 100 MG CAPSULE PO SCH ×2 (08:18→20:19)
[2019-03-12] MEDS: METOPROLOL SUCCINATE 25 MG ER TABLET PO SCH (08:18)
[2019-03-12] MEDS: LISINOPRIL 20 MG TABLET PO SCH ×2 (08:18→20:19)
[2019-03-12] MEDS: PANTOPRAZOLE SODIUM 40 MG DR TABLET PO SCH (08:18)
[2019-03-12] MEDS: AmLODIPine BESYLATE 5 MG TABLET PO SCH (10:34)
[2019-03-12 10:46] VITALS: BP 140/61
[2019-03-12] MEDS ORDERED: LACTULOSE 20 GM/30 ML SOLUTION UDCUP PO PRN (14:45)
[2019-03-12 16:04] VITALS: BP 123/52
[2019-03-12] MEDS: CefTRIAXone 1 GM/DEXTROSE 50 ML IV SCH (17:26)
[2019-03-12 20:13] VITALS: BP 104/63
[2019-03-12] MEDS: ATORVASTATIN CALCIUM 40 MG TABLET PO SCH (20:19)
[2019-03-13] VITALS (7 sets, daily range): BP systolic 129–153; BP diastolic 46–72
[2019-03-13] MEDS: TraMADol HCL 50 MG TABLET PO PRN (05:30)
[2019-03-13 07:29] LABS: BASOPHILS % (AUTO) 0.4 % (0.0-2.0); EOSINOPHILS % (AUTO) 4.7 % (1.0-6.0); HEMATOCRIT 27.3 % (36-46); HEMOGLOBIN 9.2 g/dL (12.0-16.0); LYMPHOCYTES # (AUTO) 1.1 K/uL (1.0-4.8); LYMPHOCYTES % (AUTO) 12.2 % (22.0-44.0); MEAN CORPUSCULAR HEMOGLOBIN 32.2 pg (26.0-34.0); MEAN CORPUSCULAR HGB CONC 33.7 G/dL (31.0-37.0); MEAN CORPUSCULAR VOLUME 95 fL (80-100); MONOCYTES # (AUTO) 0.7 K/uL (0.1-1.0); MONOCYTES % (AUTO) 7.7 % (2.0-9.0); NEUTROPHILS # (AUTO) 6.7 K/uL (1.8-7.7); PLATELET COUNT (AUTO) 409 K/uL (150-450); RED BLOOD CELL COUNT(AUTO) 2.87 MIL/uL (4.00-5.20); RED CELL DISTRIBUTION WIDTH 14.8 % (11.5-14.5)
[2019-03-13 07:50] LABS: ALANINE AMINOTRANSFERASE 128 U/L (12-78); ALBUMIN 2.2 g/dL (3.4-5.0); ALKALINE PHOSPHATASE 245 U/L (46-116); ANION GAP 4 mmol/L (8-16); ASPARTATE AMINOTRANSFERASE 83 U/L (15-37); BILIRUBIN,TOTAL 0.9 mg/dL (0.1-1.0); CALCIUM, TOTAL 8.1 mg/dL (8.8-10.5); CARBON DIOXIDE 29 mmol/L (22-29); CHLORIDE 102 mmol/L (98-107); GLUCOSE,RANDOM 99 mg/dL (70-110); POTASSIUM 4.2 mmol/L (3.5-5.1); SODIUM SERUM 135 mmol/L (136-145); UREA NITROGEN, BLOOD 11 mg/dL (7-18)
[2019-03-13 07:52] LABS: GLOMERULAR FILTR. RATE CALC > 60 mL/min (>60)
[2019-03-13] MEDS: LISINOPRIL 20 MG TABLET PO SCH ×2 (08:52→20:14)
[2019-03-13] MEDS: ASPIRIN 325 MG TABLET PO SCH (08:52)
[2019-03-13] MEDS: ENOXAPARIN SODIUM 30 MG/0.3 ML PF SYRINGE SQ SCH ×2 (08:52→22:16)
[2019-03-13] MEDS: DOCUSATE SODIUM 100 MG CAPSULE PO SCH ×2 (08:52→20:14)
[2019-03-13] MEDS: PANTOPRAZOLE SODIUM 40 MG DR TABLET PO SCH (08:52)
[2019-03-13] MEDS: METOPROLOL SUCCINATE 25 MG ER TABLET PO SCH (08:52)
[2019-03-13] MEDS: AmLODIPine BESYLATE 5 MG TABLET PO SCH (08:52)
[2019-03-13] MEDS: CefTRIAXone 1 GM/DEXTROSE 50 ML IV SCH (17:43)
[2019-03-13] MEDS ORDERED: SODIUM CHLORIDE 0.9% 250 ML IV ONE (17:45)
[2019-03-13] MEDS: ATORVASTATIN CALCIUM 40 MG TABLET PO SCH (20:14)
[2019-03-13] MEDS: ACETAMINOPHEN 325 MG TABLET PO PRN (20:14)
[2019-03-14 06:44] VITALS: BP 151/92
[2019-03-14] MEDS: METOPROLOL SUCCINATE 25 MG ER TABLET PO SCH (08:07)
[2019-03-14] MEDS: AmLODIPine BESYLATE 5 MG TABLET PO SCH (08:07)
[2019-03-14] MEDS: DOCUSATE SODIUM 100 MG CAPSULE PO SCH (08:07)
[2019-03-14] MEDS: ASPIRIN 325 MG TABLET PO SCH (08:07)
[2019-03-14] MEDS: LISINOPRIL 20 MG TABLET PO SCH (08:08)
[2019-03-14] MEDS: PANTOPRAZOLE SODIUM 40 MG DR TABLET PO SCH (08:08)
[2019-03-14] MEDS: ENOXAPARIN SODIUM 30 MG/0.3 ML PF SYRINGE SQ SCH (08:08)
[2019-03-14 11:53] VITALS: BP 156/76
[2019-03-14] MEDS ORDERED: ASPI-989 PO (12:57)
[2019-03-14] MEDS ORDERED: AMLO5TAB9 PO (12:57)
[2019-03-14] MEDS ORDERED: RIVA10 PO (12:58)
[2019-03-14] MEDS ORDERED: METO25XL PO (12:58)
[2019-03-14] MEDS: ACETAMINOPHEN 325 MG TABLET PO PRN (14:23)
[2019-03-14 16:04] VITALS: BP 99/52
[2019-03-14] MEDS: CefTRIAXone 1 GM/DEXTROSE 50 ML IV SCH (17:49)
== END 2019-03-14 18:45 | disposition home or self-care (01) | DRG 308 ==
LOC: EMS 14:45 → 5S 19:00 → ICU 03-07 16:00 → 5S 03-08 19:20 → 6N 03-13 18:30
PROVIDERS: ADMIT Internal Medicine; ATTEND Internal Medicine
PROC: 0QS704Z Reposition Left Upper Femur with Internal Fixation Device, Open Approach (ICD-10-PCS; principal; 2019-03-07 13:00)
PROC: 3E0234Z Introduction of Serum, Toxoid and Vaccine into Muscle, Percutaneous Approach (ICD-10-PCS; 2019-03-14)
PROC: 3E02340 Introduction of Influenza Vaccine into Muscle, Percutaneous Approach (ICD-10-PCS; 2019-03-14)
DX: S72.142A Displaced intertrochanteric fracture of left femur, initial encounter for closed fracture (principal); N17.0 Acute kidney failure with tubular necrosis; I63.9 Cerebral infarction, unspecified; E87.2 Acidosis; R65.10 Systemic inflammatory response syndrome (SIRS) of non-infectious origin without acute organ dysfunction; I25.110 Atherosclerotic heart disease of native coronary artery with unstable angina pectoris; I69.354 Hemiplegia and hemiparesis following cerebral infarction affecting left non-dominant side; E86.0 Dehydration; N39.0 Urinary tract infection, site not specified; S72.042A Displaced fracture of base of neck of left femur, initial encounter for closed fracture; N18.9 Chronic kidney disease, unspecified; I12.9 Hypertensive chronic kidney disease with stage 1 through stage 4 chronic kidney disease, or unspecified chronic kidney disease; I25.10 Atherosclerotic heart disease of native coronary artery without angina pectoris; I77.1 Stricture of artery; W18.39XA Other fall on same level, initial encounter; Y93.89 Activity, other specified; Y92.89 Other specified places as the place of occurrence of the external cause; Y99.8 Other external cause status; Z90.49 Acquired absence of other specified parts of digestive tract; Z90.710 Acquired absence of both cervix and uterus
CPT/HCPCS: 51702; 70450; 70496; 70544; 70551; 72125; 72170; 73503; 73552; 75574; 82270; 82728; 82948; 83036; 83540; 83550; 83735; 84145; 86850; 86900; 86901; 86920; 87040; 87081; 87086; 90686; 90732; 92610; 93005; 93306; 93880; 97110; 97163; 97166; 97530; 97535; 99291; C9290; G0378; J0131; J0330; J0690; J0696; J1100; J1650; J2370; J2405; J2704; J3010; J3490; J7030; J7040; J7050; P9016

== ENCOUNTER 2019-03-19 13:42 | Emergency (ER) | payer MEDICAID ==
[~2019-03-19] VITALS: Ht 152.4 cm; Wt 50.0 kg
[~2019-03-19 13:42] MED LIST changes: +AMLO5TAB9 PO; +ASPI-989 PO; -ASPI81 PO; +METO25XL PO; +RIVA10 PO
[2019-03-19] MEDS ORDERED: METO25XL PO (13:51)
[2019-03-19] MEDS ORDERED: AMLO5TAB9 PO (13:51)
[2019-03-19] MEDS ORDERED: [UNRECOGNIZED DRUG - OTHER] PO (13:51)
[2019-03-19 15:42] LABS: BASOPHILS % (AUTO) 0.4 % (0.0-2.0); EOSINOPHILS % (AUTO) 4.4 % (1.0-6.0); HEMATOCRIT 30.9 % (36-46); HEMOGLOBIN 10.3 g/dL (12.0-16.0); LYMPHOCYTES # (AUTO) 0.9 K/uL (1.0-4.8); LYMPHOCYTES % (AUTO) 10.3 % (22.0-44.0); MEAN CORPUSCULAR HEMOGLOBIN 32.3 pg (26.0-34.0); MEAN CORPUSCULAR HGB CONC 33.2 G/dL (31.0-37.0); MEAN CORPUSCULAR VOLUME 97 fL (80-100); MONOCYTES # (AUTO) 0.6 K/uL (0.1-1.0); MONOCYTES % (AUTO) 7.4 % (2.0-9.0); NEUTROPHILS # (AUTO) 6.6 K/uL (1.8-7.7); NEUTROPHILS % (AUTO) 77.5 % (40.0-70.0); PLATELET COUNT (AUTO) 561 K/uL (150-450); RED BLOOD CELL COUNT(AUTO) 3.18 MIL/uL (4.00-5.20); RED CELL DISTRIBUTION WIDTH 16.3 % (11.5-14.5)
[2019-03-19 16:36] VITALS: BP 117/68
== END 2019-03-19 16:40 | disposition home or self-care (01) ==
LOC: EMS 13:44
DX: S90.822A Blister (nonthermal), left foot, initial encounter (principal); H53.59 Other color vision deficiencies; I10 Essential (primary) hypertension; Z86.73 Personal history of transient ischemic attack (TIA), and cerebral infarction without residual deficits; Z90.49 Acquired absence of other specified parts of digestive tract; Z79.899 Other long term (current) drug therapy; Z79.82 Long term (current) use of aspirin; X58.XXXA Exposure to other specified factors, initial encounter; Y93.89 Activity, other specified; Y92.89 Other specified places as the place of occurrence of the external cause; Y99.8 Other external cause status